=== PATIENT | female | born 1940 | race Caucasian/White ===

== ENCOUNTER → 2018-01-16 11:43 | Outpatient (CLI) | payer MEDICARE, BC, OTHER, SELFPAY ==
--- NOTE | 2018-01-16 | DI.MRI.S_ITS ---
PROCEDURE: MR CERVICAL SPINE WO CON INDICATIONS: Spondylosis without myelopathy or radiculopathy, c TECHNIQUE: Noncontrast sagittal T1 spin echo and T2 fast spin echo, sagittal STIR, foraminal oblique sagittal T2 fast spin echo, and axial gradient echo or T2 fast spin echo through the cervical spine. COMPARISON: [facility], , C-SPINE WITHOUT CONTRAST, 10/18/2010, 7:46. FINDINGS: Image quality: Motion is present on multiple sequences, limiting areas of fine detail evaluation. Alignment and Curvature: There is prominent reversal of normal cervical curvature with apex at C5. There is trace anterolisthesis of C2 on C3, C3 on C4, C7 on T1 trace retrolisthesis of C5 on C6, C6 on C7. Bone Marrow: Marrow demonstrates normal overall signal. Mild reactive endplate changes are present at C4-5, minimal at C5-6 and C6-7. Spinal Cord: Visualized spinal cord has normal size and signal. No cerebellar tonsillar herniation. Paraspinous Soft Tissues: No paravertebral masses. Prevertebral soft tissues are normal in thickness. Discs: Moderate to severe desiccation is present throughout the cervical spine. C2-C3: Minimal disc bulge without spinal stenosis. There is moderate left foraminal narrowing with uncovertebral hypertrophy, progressive compared to prior exam. C3-C4: Mild disc bulge including a superimposed right posterior paracentral protrusion causing significant compromise of the right lateral recess as well as compromise of the proximal right neural foramina. This is new compared to prior exam. Uncovertebral hypertrophy is present. C4-C5: Mild disc bulge with moderate to severe spinal stenosis, slightly progressive. There is moderate to severe left and mild left foraminal narrowing particularly progressive on the left. Uncovertebral hypertrophy is present. C5-C6: Mild disc bulge with moderate spinal stenosis. There is severe left and moderate right foraminal narrowing with uncovertebral hypertrophy, progressive compared to prior exam. C6-C7: Mild disc bulge with moderate spinal stenosis. There is severe right and [id number] left foraminal narrowing with uncovertebral hypertrophy. This is progressive compared to prior exam. C7-T1: No disc bulge, spinal stenosis or foraminal narrowing. IMPRESSION: 1. Multilevel degenerative changes demonstrate interval progression compared to prior exam as noted above. 2. Multilevel spinal stenosis most severe at C4-5 secondary to disc bulge with contributing effect of reversal of cervical curvature as well as uncovertebral arthropathy. 3. Multilevel foraminal narrowing severe at C5-6 and C6-7 predominantly secondary to uncovertebral arthropathy. Dictated by: Romina Ambrocio M.D. on 01/16/2018 at 16:23 Approved by: Romina Ambrocio M.D. on 01/16/2018 at 16:41
== END ==
PROVIDERS: PCP Internal Medicine; Visit Provider Physical Medicine & Rehabilitation Pain Medicine
DX: M47.812 Spondylosis without myelopathy or radiculopathy, cervical region (principal); M50.31 Other cervical disc degeneration, high cervical region; M48.02 Spinal stenosis, cervical region; M50.221 Other cervical disc displacement at C4-C5 level
CPT/HCPCS: 72141

== ENCOUNTER 2018-02-11 08:17 | Day surgery (SDC) | payer MEDICARE, BC, OTHER, SELFPAY ==
--- NOTE | 2018-02-11 08:14 | PM.PREOP ---
Pre-operative Note Interval Note Pre-op Check: Yes History & Physical Reviewed by Physician Changes: No
--- NOTE | 2018-02-11 08:23 | PM.OP.1 ---
Operative Date/Time/Diagnoses Date of procedure: 02/11/18 Time of procedure: 10:00 Procedure & Clinicians Procedure: Date of service: February 11, 2018 Preoperative diagnoses: 1. Right nuclear sclerotic and cortical cataract 2. Previous open heart surgery now in sinus rhythm. Postoperative diagnoses: 1. Cataract removed with phacoemulsification with posterior chamber interocular lens implant placed. Procedure: Phacoemulsification with posterior chamber intraocular lens implant Surgeon: Leila Wren MD Complications:None Specimen: None Implant:ZCBOO+22.5 Blood loss: None Anesthesia: Retrobulbar with monitored standby Anesthesiologist: Yohan Haq M.D. Description of procedure: Patient is a female 77year old with decreased vision due to cataract which is affecting activities of daily living. She wants surgery to improve vision. She was taken to the operating room and given IV sedation. A retrobulbar block insert consisting of 6 cc of 2% xylocaine without epinephrine mixed half and half with 0.5% Marcaine with 1 cc of hyaluronidase added is placed between the medial and lateral 1/3 of the inferior orbital rim. Lid akinesia is obtain with 1% xylocaine with epinephrine infiltrated along the lid margin. The eye is manually massaged for 30 sec, prepped using Betadine solution, and draped in the usual sterile fashion. Temporal approach was made, a 1 mm side-port incision was made at the 7:30 position. Phenylephrine 1.5% mixed with 1% xylocaine 0.2 cc was placed into the anterior chamber. Viscoat followed by Healon was then placed. A 2.6 mm clear incision with a 2.6 mm blade was placed at the 170 degree meridian. A 360 degree capsulorrhexis style capsulotomy was then performed with a cystitome needle on a Healon. Hydrodelineation and hydrodissection were performed. The phacoemulsification unit is introduced, and sculpting notice used to groove the central lens. It is then removed in chopping mode. Epi nucleus is removed with epinuclear mode and irrigation aspiration was used to remove the peripheral cortex. The posterior capsule is polished. The intraocular lens is selected, inspected, power confirmed, and placed in the posterior chamber. The pupil [] constricted. The wound was strongly hydrated and tested for leaks, there was none [] left sutureless. Vigamox 0.1 cc was placed into the anterior chamber. Kenalog 0.2 cc was placed in the superior subconjunctival space. A drop of antibiotic and was placed and the eye was patched and shielded. The patient was stable and returned to the recovery room in excellent condition. Dictated by: Leila Wren MD Copy to: [facility] Same procedure as scheduled: Yes
[2018-02-11] MEDS: CATARACT EYE COMPOUND (10 DROPS/SYRINGE) 3 DROPS EYE-OP (08:57)
[2018-02-11] MEDS: PROPARACAINE 0.5% OPHTH SOL 2 DROPS EYE-OP (08:57)
[2018-02-11 09:04] VITALS: BP 145/64; PULSE 64; RESP 16; TEMP 36.4; O2SAT 98; BMI 23.5
[2018-02-11] MEDS: CHONDROIDTIN/SOD HYALURONATE 1.05 ML SYRINGE INTRAOCULA (10:04)
[2018-02-11] MEDS: BALANCED SALT IRRIG SOLN NO.2 15 ML IRRIG.SOLN IRR (10:04)
[2018-02-11] MEDS: CARBACHOL 1.5 ML VIAL INJ (10:04)
[2018-02-11] MEDS: LIDOCAINE 1% W/EPI INJ 20 ML INJ (10:05)
[2018-02-11] MEDS: HYALURONATE SODIUM 10 MG/ML SYRINGE INJ (10:05)
[2018-02-11] MEDS: MOXIFLOXACIN OPHTH DROPS 3 ML BOTTLE 2 DROPS INJ (10:06)
[2018-02-11] MEDS: PHENYLEPHRINE/LIDOCAINE VIAL (OR) 0.2 ML EYE-OP (10:06)
[2018-02-11] MEDS: OFLOXACIN 0.3% OPHTH 5 ML 2 DROPS EYE-RIGHT (10:06)
[2018-02-11] MEDS: LIDOCAINE 2% 4 ML, BUPIVACAINE 0.5% (PF) 4 ML, HYALURONIDASE 150 UNIT INJ (10:07)
[2018-02-11] MEDS: TRIAMCINOLONE 50 MG/5 ML VIAL INJ (10:07)
[2018-02-11] MEDS: BALANCED SALT IRRIG SOLN NO.2 500 ML, EPINEPHrine 1 MG IRR (10:07)
[2018-02-11] MEDS: ERYTHROMYCIN OPHTH 1 GM OINT 1 APPLIC EYE-RIGHT (10:08)
[2018-02-11 10:40] VITALS: BP 134/68; PULSE 61; RESP 15; TEMP 36.5; O2SAT 100
--- NOTE | 2018-02-11 10:55 | SUR.PHASEII ---
[id number] patient dressed , ready to go, steady on feet, no questions
== END 2018-02-11 10:51 | disposition home or self-care (01) ==
LOC: OR 08:18
PROVIDERS: PCP Internal Medicine; Visit Provider Ophthalmology
DX: H25.11 Age-related nuclear cataract, right eye (principal); J45.909 Unspecified asthma, uncomplicated; I48.91 Unspecified atrial fibrillation
CPT/HCPCS: J0171; J2704; J3301; J3470

== ENCOUNTER 2018-02-25 10:13 | Day surgery (SDC) | payer MEDICARE, BC, OTHER, SELFPAY ==
--- NOTE | 2018-02-24 17:20 | PM.PREOP ---
Pre-operative Note Interval Note Pre-op Check: Yes History & Physical Reviewed by Physician Changes: No
--- NOTE | 2018-02-24 17:21 | P.OP_ITS ---
Operative Date/Time/Diagnoses Date of procedure: 02/25/18 Time of procedure: 12:00 Procedure & Clinicians Procedure: Date of service: February 25, 2018 Preoperative diagnoses: 1. Nuclear sclerotic Cataract 2. Previous open heart surgery Postoperative diagnoses: 1. Cataract removed with phacoemulsification and posterior chamber intra- ocular lens implant placed. Procedure: Phacoemulsification with posterior chamber intraocular lens implant Surgeon: Leila Wren MD Complications: None Specimen: None Implant: ZCBOO+23.0 Blood loss: None Anesthesia: Retrobulbar with monitored standby Anesthesiologist: Shane Neumann M.D. Description of procedure: Patient is a 70 year old with decreased vision due to cataract which is affecting activities of daily living. She wants surgery to improve vision. She was taken to the operating room and given IV sedation. A retrobulbar block consisting of 6 cc of 2% xylocaine without epinephrine mixed half and half with 0.5% Marcaine with 1 cc of hyaluronidase added is placed between the medial and lateral 1/3 of the inferior orbital rim. Lid akinesia is obtain with 1% xylocaine with epinephrine infiltrated along the lid margin. The eye is manually massaged for 30 sec, prepped using Betadine solution, and draped in the usual sterile fashion. Temporal approach was made, a 1 mm side-port incision was made at the 12 oclock meridian. Phenylephrine 1.5% mixed with 1% xylocaine 0.2 cc was placed into the anterior chamber. Viscoat followed by Healon was then placed. A 2.6 mm clear incision with a 2.6 mm blade was placed at the 3 oclock meridian. A 360 degree capsulorrhexis style capsulotomy was then performed with a cystitome needle on a Healon. Hydrodelineation and hydrodissection were performed. The phacoemulsification unit is introduced, and sculpting notice used to groove the central lens. It is then removed in chopping mode. Epi nucleus is removed with epinuclear mode and irrigation aspiration was used to remove the peripheral cortex. The posterior capsule is polished. The intraocular lens is selected, inspected, power confirmed, and placed in the posterior chamber. The pupil was constricted. The wound was stromally hydrated and tested for leaks, there was none and was left sutureless. Vigamox 0.1 cc was placed into the anterior chamber. Kenalog 0.2 cc was placed in the superior subconjunctival space. A drop of antibiotic and was placed and the eye was patched and shielded. The patient was stable and returned to the recovery room in excellent condition. Dictated by: Leila Wren MD Copy to: [facility] Same procedure as scheduled: Yes
[2018-02-25] MEDS: PROPARACAINE 0.5% OPHTH SOL 2 DROPS EYE-OP (10:43)
[2018-02-25] MEDS: CATARACT EYE COMPOUND (10 DROPS/SYRINGE) 3 DROPS EYE-OP (10:53)
[2018-02-25 10:54] VITALS: BMI 23.0
[2018-02-25 11:13] VITALS: BP 156/68; PULSE 57; RESP 16; TEMP 36.4; O2SAT 96
[2018-02-25] MEDS: CARBACHOL 1.5 ML VIAL INJ (13:29)
[2018-02-25] MEDS: CHONDROIDTIN/SOD HYALURONATE 1.05 ML SYRINGE INTRAOCULA (13:29)
[2018-02-25] MEDS: BALANCED SALT IRRIG SOLN NO.2 15 ML IRRIG.SOLN IRR (13:29)
[2018-02-25] MEDS: MOXIFLOXACIN OPHTH DROPS 3 ML BOTTLE 2 DROPS INJ (13:30)
[2018-02-25] MEDS: LIDOCAINE 1% W/EPI INJ 20 ML INJ (13:30)
[2018-02-25] MEDS: HYALURONATE SODIUM 10 MG/ML SYRINGE INJ (13:30)
[2018-02-25] MEDS: ERYTHROMYCIN OPHTH 1 GM OINT 1 APPLIC EYE-LEFT (13:30)
[2018-02-25] MEDS: OFLOXACIN 0.3% OPHTH 5 ML 2 DROPS EYE-LEFT (13:31)
[2018-02-25] MEDS: PHENYLEPHRINE/LIDOCAINE VIAL (OR) 0.2 ML EYE-OP (13:31)
[2018-02-25] MEDS: BALANCED SALT IRRIG SOLN NO.2 500 ML, EPINEPHrine 1 MG IRR (13:32)
[2018-02-25] MEDS: TRIAMCINOLONE 50 MG/5 ML VIAL INJ (13:32)
[2018-02-25] MEDS: LIDOCAINE 2% 4 ML, BUPIVACAINE 0.5% (PF) 4 ML, HYALURONIDASE 150 UNIT INJ (13:33)
[2018-02-25 14:10] VITALS: BP 129/65; PULSE 71; RESP 16; TEMP 36.1; O2SAT 100
== END 2018-02-25 14:15 | disposition home or self-care (01) ==
LOC: OR 10:14
PROVIDERS: PCP Internal Medicine; Visit Provider Ophthalmology
DX: H25.12 Age-related nuclear cataract, left eye (principal); J45.909 Unspecified asthma, uncomplicated; I48.91 Unspecified atrial fibrillation
CPT/HCPCS: J0171; J2250; J2704; J3010; J3301; J3470

== ENCOUNTER → 2018-03-10 11:30 | Outpatient (CLI) | payer MEDICARE, BC, OTHER, SELFPAY ==
[2018-03-10 13:02] LABS: Digoxin 0.7 ng/mL (0.8-2.0)
[2018-03-10 13:29] LABS: BUN Creatinine Ratio 18.8 (6-22); Blood Urea Nitrogen 15 mg/dL (7-17); Calcium 9.5 mg/dL (8.4-10.2); Carbon Dioxide 31 mmol/L (22-32); Chloride 98 mmol/L (98-107); Estimated Glomerular Filt Rate > 60.0 mL/min (>60); Glucose 114 mg/dL (80-110); HEMOLYSIS < 15 (0-50); Potassium 4.9 mmol/L (3.4-5.1); Sodium 140 mmol/L (137-145)
== END ==
PROVIDERS: PCP Internal Medicine; Visit Provider Internal Medicine Cardiovascular Disease
DX: I48.91 Unspecified atrial fibrillation (principal); I48.4 Atypical atrial flutter
CPT/HCPCS: 36415; 80048; 80162

== ENCOUNTER → 2018-07-06 14:16 | Outpatient (CLI) | payer MEDICARE, BC, OTHER, SELFPAY ==
--- NOTE | 2018-07-06 15:15 | PM.TREADMILL ---
Cardiac Stress Test Report Referral & Results Date Patient Seen: 07/06/18 Requesting provider: Saurabh Wren Indication: Chest pain Rest ECG: Unremarkable Procedure Note: Today following both written and verbal informed consent the patient was exercised according to a standard Eliceo protocol patient went for a total of 4 minutes 58 sec achieving a maximum heart rate of 140 (artifact makes this difficult to be confident, but this is approximately the maximum heart rate), maximum systolic blood pressure of 160 to. This is approximately 7.0 METS. Exercise was terminated at this point because of patient unable to continue. Patient was also given Cardiolite through a previously started Hep-Lock IV by the nuclear chemistry technician approximately 1 minute prior to the cessation of exercise. No ST-T segment changes noted through significant artifact. None noted upon immediate cessation of activity and rest which reduced artifact Normal heart rate and blood pressure response to exercise Functional aerobic impairment rated-20% sedentary scale Impression: No ECG evidence of ischemia. Please see perfusion imaging Excellent exercise capacity Please note: Actual ECG tracings can be found in the PACS system.
--- NOTE | 2018-07-07 15:19 | DI.NM.S_ITS ---
DATE OF SERVICE: 07/06/2017 PROCEDURE: Exercise perfusion study. INDICATIONS: Chest pain and shortness of breath. RADIOPHARMACEUTICAL: 26.7 mCi technetium-99m Myoview IV was injected at stress and 26.5 mCi technetium-99m Myoview IV was injected at rest. CARDIAC STRESS: Patient underwent exercise perfusion study under the supervision of an attending staff. She walked on Eliceo protocol for 4 minutes 58 seconds and achieved 100% of target heart rate, and normal blood pressure response. Baseline EKG revealed sinus rhythm. There was artifact seen. At peak exercise, there was artifact seen as well. However, no convincing ischemic changes. In recovery, there were no convincing ischemic changes or significant arrhythmias. Patient was unable to walk further. RAW DATA: There was significant breast shadow seen. GATED STUDY: Stress LV ejection fraction 80%. No obvious wall motion abnormalities. Resting end-diastolic volume is 87 mL. No transient ischemic dilatation. TID ratio is 0.8, which is within normal limits. Lung/heart ratio is 0.32, which is within normal limits. MYOCARDIAL PERFUSION SCAN: Stress supine and resting supine images revealed small-sized mildly decreased perfusion of distal anterior wall, apex, which got significantly improved in prone images. Prone images remained to have minimally decreased perfusion of the distal anterior wall and anterior apex. No reversible ischemia. CONCLUSION: I will call this study likely a normal myocardial perfusion study with evidence of breast tissue attenuation artifact which got partially improved during prone images. [place] has normal wall motion which goes against the diagnosis of previous myocardial infarction. No regional wall motion abnormalities. Significant breast shadow was seen during raw images. Patient had pharmacological perfusion study in 08/2009, that time also patient had similar perfusion defect. Overall, this is a low-risk myocardial perfusion scan. Kavon Larson - PRINCE/gabriel/ab doc#: [id number]/job#: [id number] dd: 07/07/2018 14:51:00 dt: 07/07/2018 14:57:00 DICTATING MD/COPIES TO: Vera Ugarte MD COPIES MNE: RUI
== END ==
PROVIDERS: Family Provider Internal Medicine Cardiovascular Disease; PCP Internal Medicine; Visit Provider Internal Medicine
DX: R07.9 Chest pain, unspecified (principal); R06.02 Shortness of breath
CPT/HCPCS: 78452; 93016; 93017; 93018; A9502

== ENCOUNTER → 2018-09-09 09:48 | Outpatient (CLI) | payer MEDICARE, BC, OTHER, SELFPAY ==
[2018-09-09 10:53] LABS: Add Manual Diff / Slide Review NO; Basophils Absolute Auto 100 /uL (0-100); Basophils Percent Auto 1.1 % (0-2); Eosinophils Absolute Auto 200 /uL (0-450); Eosinophils Percent Auto 3.4 % (2-4); Hematocrit 37.5 % (36-46); Hemoglobin 12.7 g/dL (12.0-16.0); Lymphocytes Absolute Auto 2100 /uL (1100-4500); Lymphocytes Percent Auto 34.2 % (25-40); Mean Corpuscular HGB Conc 33.9 % (30-36); Mean Corpuscular Hemoglobin 32.9 PG (26-34); Monocytes Absolute Auto 500 /uL (0-900); Monocytes Percent Auto 7.6 % (3-14); Neutrophils Absolute Auto 3300 /uL (1500-7000); Neutrophils Percent Auto 53.7 % (50-75); Platelet Count 253 X10^3/uL (150-400); Red Blood Cell Count 3.87 X10^6/uL (4.0-5.2); Red Cell Distribution Width 12.6 % (11.6-14.8); White Blood Cell Count 6.1 X10^3/uL (4.5-11.0)
[2018-09-09 11:10] LABS: Alanine Aminotransferase 17 IU/L (9-52); Albumin Globulin Ratio 1.2 (1.0-2.8); Alkaline Phosphatase 79 U/L (38-126); Aspartate Aminotransferase 19 IU/L (14-36); BUN Creatinine Ratio 17.5 (6-22); Bilirubin Total 0.3 mg/dL (0.2-1.3); Blood Urea Nitrogen 14 mg/dL (7-17); Calcium 9.3 mg/dL (8.4-10.2); Carbon Dioxide 30 mmol/L (22-32); Chloride 98 mmol/L (98-107); Estimated Glomerular Filt Rate > 60.0 mL/min (>60); Globulin 3.3 g/dL (1.7-4.1); Glucose 101 mg/dL (80-110); HEMOLYSIS < 15 (0-50); Potassium 4.3 mmol/L (3.4-5.1); Sodium 137 mmol/L (137-145); Total Protein 7.3 g/dL (6.3-8.2)
[2018-09-09 11:39] LABS: Thyroid Stimulating Hormone 2.83 uIU/mL (0.47-4.68)
[2018-09-09 13:28] LABS: Free T4, Direct Thyroxine 1.35 ng/dL (0.78-2.19)
[2018-09-11 15:56] LABS: Triiodothyronine T3 Total 111 ng/dL (76-181)
== END ==
PROVIDERS: Family Provider Internal Medicine; PCP Internal Medicine; Visit Provider Internal Medicine Cardiovascular Disease
DX: I48.91 Unspecified atrial fibrillation (principal); E03.9 Hypothyroidism, unspecified
CPT/HCPCS: 36415; 80053; 84439; 84443; 84480; 85025

== ENCOUNTER → 2018-09-23 12:55 | Outpatient (CLI) | payer MEDICARE, BC, OTHER, SELFPAY ==
--- NOTE | 2018-09-23 | DI.MG.S_ITS ---
BILATERAL DIGITAL DIAGNOSTIC MAMMOGRAM 3D/2D: 09/23/2018 CLINICAL: Left breast palpable mass. Comparison is made to exam dated: 06/28/2016 [facility]. The tissue of both breasts is heterogeneously dense. This may lower the sensitivity of mammography. There are grouped puncate calcifications of the lower outer right breast at middle depth. These measure up to 0.5 cm in greatest extent. There is a triangular marker overlying the skin of the lower left breast at the site of the patient's reported palpable abnormality. There is no underlying mammographic abnormality. There is a circular mole marker overlying the left breast. IMPRESSION: INCOMPLETE: NEEDS ADDITIONAL IMAGING EVALUATION 1) No mammographic abnormality to correlate with the site of the patient's reported focal palpable abnormality of the lower left breast. Targeted diagnostic ultrasound recommended for further evaluation, which will be performed immediately following this exam. 2) 0.5 cm extent of grouped punctate calcifications of the lower outer right breast at middle depth. A follow-up diagnostic mammogram in 6 months is recommended to demonstrate stability. This exam was interpreted at Station ID: [id number]. NOTE: For mammograms, a report in lay terms will be sent to the patient. Approximately 15% of breast malignancies will not be visualized mammographically. In the management of a palpable breast mass, a negative mammogram must not discourage biopsy of a clinically suspicious lesion. Electronically Signed By: Daniel Vick M.D. ecl/:09/23/2018 14:45:42 copy to: oTm Goldberg ACR BI-RADS Category 0: Incomplete 3340F
--- NOTE | 2018-09-23 | DI.US.S_ITS ---
LIMITED ULTRASOUND OF LEFT BREAST: 09/23/2018 CLINICAL: Palpable left breast lump. Comparison is made to exams dated: 09/23/2018 mammogram, 06/28/2016 mammogram, 04/30/2007 mammogram, and 08/18/2002 mammogram - [facility]. Real-time and Doppler ultrasound of the left breast 4 o'clock region were performed. Nicholson scale images of the real-time examination were reviewed. There is a 1.8 x 1.1 x 1.9 cm heterogeneously hypoechoic irregular indistinct mass in the left breast at 4:00 position 5 cm from the nipple at the site of patient's reported palpable concern. This mass demonstrates internal vascularity on Doppler ultrasound and posterior acoustic shadowing. Targeted ultrasound of the left axilla demonstrates no left axillary lymphadenopathy. IMPRESSION: SUSPICIOUS OF MALIGNANCY 1. 1.9 cm irregular indistinct mass in the left breast at 4:00 position 5 cm from the nipple at the site of patient's reported palpable concern. An ultrasound-guided biopsy is recommended for further evaluation. Recommendation for biopsy was discussed with the patient at the time of the exam by the [facility] Radiologist Dr. Rishi Miles in person. 2. No ultrasound evidence of left axillary lymphadenopathy. 3. Diagnostic mammography performed immediately prior to this exam identified a 0.5 cm extent of grouped punctate calcifications of the lower outer right breast at middle depth. A follow-up diagnostic mammogram in 6 months is recommended to demonstrate stability. This exam was interpreted at Station ID: [id number]. Electronically Signed By: Daniel Vick M.D. ecl/:09/23/2018 16:00:48 copy to: Tom Goldberg letter sent: Biopsy Required Ultrasound BI-RADS: 4b Suspicious abnormality - intermediate suspicion of malignancy
--- NOTE | 2018-09-23 | DI.US.S_ITS ---
PROCEDURE: US ABDOMEN COMPLETE INDICATIONS: ABDOMINAL PAIN TECHNIQUE: Real-time scanning was performed of the abdominal and retroperitoneal organs, with image documentation. COMPARISON: [facility], US, ABDOMEN COMPLETE, 02/11/2008, 9:36. FINDINGS: Liver: Liver is normal in size and homogeneous in echotexture. Gallbladder: There is a 1.2 cm mobile gallstone within the gallbladder lumen and tenderness during sonographic palpation over the gallbladder but the gallbladder wall is not abnormally thickened at 1.7 mm. Biliary ducts: Intrahepatic bile ducts are non-dilated. Extrahepatic bile duct caliber measures 4.8 mm. Normal is 6-7 mm or less in diameter, or 10 mm or less post-cholecystectomy. Pancreas: Visualized portions of the pancreas are sonographically normal. Spleen: Spleen is normal in size and homogeneous in echotexture. Kidneys: Kidneys are normal in size and echotexture. Right kidney measures 10.3 cm long; left kidney measures 11.0 cm long. No hydronephrosis or nephrolithiasis. No solid masses. Aorta: Visualized aorta is normal in caliber at less than 3 cm. Iliacs: Proximal common iliac arteries are normal in caliber at less than 2.5 cm. IVC: Intrahepatic inferior vena cava is patent. Miscellaneous: No free abdominal fluid. IMPRESSION: A normal or abnormal appendix could not be identified at the right lower quadrant. There is a 1.2 cm mobile gallstone within the gallbladder lumen with associated tenderness during sonographic palpation over the gallbladder but the gallbladder wall is not thickened and there is no adjacent pericholecystic free fluid. The likelihood of acute cholecystitis in this clinical circumstance is low. Dictated by: Rishi Miles M.D. on 09/23/2018 at 14:13 Approved by: Rishi Miles M.D. on 09/23/2018 at 14:14
== END ==
PROVIDERS: Family Provider Internal Medicine; PCP Internal Medicine; Referring Provider Internal Medicine Cardiovascular Disease; Visit Provider Internal Medicine
DX: R92.8 Other abnormal and inconclusive findings on diagnostic imaging of breast (principal); R92.1 Mammographic calcification found on diagnostic imaging of breast; N63.23 Unspecified lump in the left breast, lower outer quadrant; R10.11 Right upper quadrant pain; R10.31 Right lower quadrant pain; K80.80 Other cholelithiasis without obstruction
CPT/HCPCS: 76642; 76700; 77066; G0279

== ENCOUNTER → 2018-09-29 12:11 | Outpatient (CLI) | payer MEDICARE, BC, OTHER, SELFPAY ==
[2018-09-29 13:27] LABS: Alanine Aminotransferase 20 IU/L (9-52); Albumin 4.1 g/dL (3.5-5.0); Albumin Globulin Ratio 1.4 (1.0-2.8); Alkaline Phosphatase 70 U/L (38-126); Aspartate Aminotransferase 19 IU/L (14-36); BUN Creatinine Ratio 21.4 (6-22); Bilirubin Total 0.6 mg/dL (0.2-1.3); Blood Urea Nitrogen 15 mg/dL (7-17); Calcium 9.7 mg/dL (8.4-10.2); Carbon Dioxide 32 mmol/L (22-32); Chloride 98 mmol/L (98-107); Estimated Glomerular Filt Rate > 60.0 mL/min (>60); Glucose 103 mg/dL (80-110); HEMOLYSIS < 15 (0-50); Potassium 4.7 mmol/L (3.4-5.1); Sodium 138 mmol/L (137-145); Total Protein 7.1 g/dL (6.3-8.2)
== END ==
PROVIDERS: PCP Internal Medicine; Visit Provider Internal Medicine
DX: R10.31 Right lower quadrant pain (principal)
CPT/HCPCS: 36415; 80053

== ENCOUNTER → 2018-10-01 10:02 | Outpatient (CLI) | payer MEDICARE, BC, OTHER, SELFPAY ==
--- NOTE | 2018-10-01 11:11 | DI.CT.S_ITS ---
PROCEDURE: CT ABDOMEN PELVIS WO CON INDICATIONS: Right lower quadrant pain TECHNIQUE: After the administration of oral contrast, 5 mm thick sections acquired from the diaphragms to the symphysis. 5 mm coronal and sagittal reformats were performed. For radiation dose reduction, the following was used: automated exposure control, adjustment of mA and/or kV according to patient size. COMPARISON: None. FINDINGS: Image quality: Excellent. ABDOMEN: Lung bases: Lung bases are clear. Heart size is normal. Solid organs: Liver is normal in size. Cholelithiasis is seen, and no gallbladder wall thickening or pericholecystic fluid. Pancreas is normal in size. Spleen is normal in size. No adrenal nodules. Both kidneys are normal in size, without hydronephrosis or nephrolithiasis. Nonspecific bilateral perinephric fat stranding is seen. No perinephric fluid collection. Peritoneum and bowel: There is a small hiatal hernia. No evidence of bowel obstruction. No abnormal bowel wall thickening or mesenteric fat stranding. The appendix is visualized and is within normal limits. No free fluid or free air. Nodes and vessels: No retroperitoneal or mesenteric adenopathy by size criteria. Aorta and inferior vena cava are normal in size. Miscellaneous: No ventral hernias. PELVIS: Genitourinary: Bladder wall thickness is normal. Miscellaneous: No inguinal hernias or adenopathy. Bones: No suspicious bony lesions. No vertebral body compression fractures. Mild dextroscoliosis of lumbar spine is seen centered at L3-4 level. Degenerative disc disease throughout thoracic and lumbar spine is seen. IMPRESSION: 1. Normal appendix. No bowel obstruction. No free fluid or free air. 2. No renal stone hydronephrosis. Nonspecific bilateral perinephric fat stranding, infectious process such as pyelonephritis cannot be excluded. No gross bladder wall abnormality. 3. Cholelithiasis, no CT evidence of acute cholecystitis. Dictated by: Simon Porter M.D. on 10/01/2018 at 17:52 Approved by: Simon Porter M.D. on 10/01/2018 at 17:55
== END ==
PROVIDERS: PCP Internal Medicine; Visit Provider Internal Medicine
DX: R10.31 Right lower quadrant pain (principal); K80.20 Calculus of gallbladder without cholecystitis without obstruction
CPT/HCPCS: 74176

== ENCOUNTER → 2018-10-02 13:31 | Outpatient (CLI) | payer MEDICARE, BC, OTHER, SELFPAY ==
--- NOTE | 2018-10-02 | PATH_ITS ---
[facility] Accession Number: [id number] . 01 Material submitted: . breast - LEFT BREAST 4:00 . 01 Clinical history: . A: LEFT BREAST 4:00 5CM FN . 02 Diagnosis: Mass at 4 o'clock, 5 cm from Nipple, Left Breast, Needle Core Biopsy: Invasive mammary carcinoma with the following characteristics: Tumor size: 0.6 cm in greatest length. Tumor type: Infiltrating carcinoma; E-cadherin studies pending for further characterization. Histologic grade: Grade 2 of 3 (intermediate grade). Tubular score: 3 of 3. Nuclear score: 3 of 3. Mitotic score: 1 of 3. In situ carcinoma: Present; E-cadherin studies pending for further characterization. Lymphatic/vascular invasion: Not identified. Estrogen/Progesteron Receptor and HER2 studies: Pending; results will be reported as an addendum. MRV/10/05/2018 . 02 Comment: Results were discussed with Dr. Wren on 10/05/18 at approximately 1:50 p.m. . 02 Electronically signed: . Wilma Colorado MD, Pathologist NPI- [id number] . 01 Gross description: . Received one formalin-filled container labeled with the patient's name and labeled left breast 4 o'clock, 5 cm FN. The specimen is received with plastic filter in container. Sample loose in container. The specimen consists of multiple pieces of light yellow partial cylindrically shaped tissue, which range in length from 0.2 to 0.6 cm in greatest dimension. The specimen is filtered, wrapped and entirely submitted in one cassette. Collection date 10/02/2018. Collection time per container 1450. Total fixation time 24 up to 48 hours. ([facility] [place]:[id number]) /[facility] . 02 Pathologist provided ICD-10: C50.912 . 02 CPT . 915524, [id number], 512661, 253410, 881431 Performed at: 01 [facility] [address] [id number] MD Alexander Fink MD Phone: [phone] Performed at: 02 [id number] [place], [place] [id number] MD Echo Hilario MD Phone: [phone]
--- NOTE | 2018-10-02 | DI.US.S_ITS ---
ULTRASOUND GUIDED BIOPSY LEFT BREAST USING VACUUM DEVICE WITH MARKING DEVICE INSERTED: 10/02/2018 CLINICAL: Left breast mass. PATIENT CONSENT: Risks (minor bleeding, infection, vasovagal reaction and repeat procedure), benefits and alternatives were explained to the patient and written informed consent was obtained. Correlation is made to exams dated: 10/02/2018 mammogram, 09/23/2018 ultrasound, 09/23/2018 mammogram, 06/28/2016 mammogram, 04/30/2007 mammogram, and 08/18/2002 mammogram - [facility]. An ultrasound guided biopsy using real-time ultrasound was performed for the indistinct irregular shaped mass located in the left breast at 4 o'clock posterior depth. The skin was prepped in the usual manner. Local anesthetic was administered to the access site. A small incision was made in the breast. The abnormality was approached from the lateral aspect. A biopsy needle was placed adjacent to the abnormality under ultrasound guidance. Once the needle was documented to be in the correct location, six specimens were obtained using the Mammotome biopsy system. A clip was inserted into the biopsy cavity. The specimens were sent to the laboratory for pathological analysis. IMPRESSION: ULTRASOUND GUIDED BIOPSY MALIGNANT Ultrasound guided biopsy of the mass in the left breast at 4 o'clock posterior depth was successful. 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 Findings are concordant with ultrasound. This exam was interpreted at Station ID: [id number]. Alfredo britton,randall/:10/13/2018 15:33:17 copy to: Tom Goldberg
--- NOTE | 2018-10-02 | DI.MG.S_ITS ---
UNILATERAL LEFT DIGITAL DIAGNOSTIC MAMMOGRAM POST-NEEDLE BIOPSY: 10/02/2018 CLINICAL: Left breast mass. Comparison is made to exams dated: 09/23/2018 mammogram, 06/28/2016 mammogram, and 04/30/2007 mammogram - [facility]. The tissue of left breast is heterogeneously dense. This may lower the sensitivity of mammography. There is a marker clip in the appropriate position in the left breast at 4-5 o'clock middle depth. This marker clip placement is at the biopsy site. IMPRESSION: POST PROCEDURE MAMMOGRAM FOR MARKER PLACEMENT There was a successful marker clip placement in the left breast middle depth. This exam was interpreted at Station ID: [id number]. NOTE: For mammograms, a report in lay terms will be sent to the patient. Approximately 15% of breast malignancies will not be visualized mammographically. In the management of a palpable breast mass, a negative mammogram must not discourage biopsy of a clinically suspicious lesion. Electronically Signed By: Alfredo britton/:10/02/2018 15:52:33 copy to: Tom Goldberg ACR BI-RADS Category Post-procedure mammogram for marker placement
== END ==
PROVIDERS: PCP Internal Medicine; Visit Provider Internal Medicine
DX: C50.512 Malignant neoplasm of lower-outer quadrant of left female breast (principal); Z17.0 Estrogen receptor positive status [ER+]
CPT/HCPCS: 19083; 77065; 88305; 88342; 88360

== ENCOUNTER 2018-11-19 11:18 | Day surgery (SDC) | payer MEDICARE, BC, OTHER, SELFPAY ==
[2018-11-13 08:32] VITALS: BMI 24.4
[2018-11-19] VITALS (9 sets, daily range): BP systolic 112–139; BP diastolic 33–63; PULSE 64–79; RESP 9–18; TEMP 36.4–36.7; O2SAT 94–99; BMI 24.4
--- NOTE | 2018-11-19 | PATH_ITS ---
[facility] Accession Number: [id number] . 01 Material submitted: . gallbladder - GALLBLADDER . 01 Clinical history: . 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 02 Diagnosis: Gallbladder, Laparoscopic Cholecystectomy: Gallbladder with cholesterolosis and cholelithiasis. One benign cystic duct lymph node (0). MRV/11/23/2018 . 02 Electronically signed: . Wilma Colorado MD, Pathologist NPI- [id number] . 01 Gross description: . Received in formalin, labeled gallbladder, is an intact gallbladder (length-7.4 cm, diameter-2.3 cm) with green smooth shiny serosa and a patent cystic duct. One lymph node (0.4 x 0.4 x 0.2 cm) is identified. The lumen contains green viscous bile and one yellow gritty friable calculus (0.9 x 0.8 x 0.5 cm). The mucosa is green and rough. The wall is up to 0.1 cm thick. No nodules, masses or lesions are identified. Section code: (A1) cystic duct resection margin and two serial sections from the body; (A2) two longitudinal sections from the fundus; (A3) one intact lymph node. ([id number]) /MRV . 02 Pathologist provided ICD-10: K80.70 . 02 CPT . 666238 Performed at: [address] [facility] [address], [place], [place] [id number] MD Alexander Fink MD Phone: [phone] Performed at: 02 [facility] [address] [place], [place] [id number] MD Echo Hilario MD Phone: [phone]
--- NOTE | 2018-11-19 13:12 | PM.PREOP ---
Pre-operative Note Interval Note History & Physical reviewed/Exam performed by Physician: Yes Changes to H&P: No H&P completed within 30 days and has changed as indicated here:: See note from 11/11/2018
[2018-11-19] MEDS: levoFLOXacin 500 MG/100 ML PIGGYBACK 100 MG IV (13:30)
--- NOTE | 2018-11-19 13:50 | SUR.OPER ---
Supine on padded OR bed, head on pillow, safety belt at thigh, left arm padded and tucked at side. Right arm secured on padded arm oard <90 degrees abduction. Legs uncrossed. Padded footboard in place. Tape over blanket to secure lower legs.
[2018-11-19] MEDS: BUPIVACAINE 0.5% (PF) VIAL 30 ML INJ (13:56)
[2018-11-19] MEDS: LACTATED RINGERS 1,000 ML 42 ML IV (14:42)
[2018-11-19] MEDS: LORazepam 2 MG/ML INJ 0.25 MG IV (15:05)
[2018-11-19] MEDS: HYDROMORPHONE 2 MG INJ 0.5 MG IV ×2 (15:06→15:25)
[2018-11-19] MEDS: METOCLOPRAMIDE 10 MG/2 ML INJ IV (15:16)
--- NOTE | 2018-11-19 15:17 | P.OP_ITS ---
Operative Date/Time/Diagnoses Date of procedure: 11/19/18 Time of procedure: 15:00 Pre-op diagnosis: Cholelithiasis cholecystitis chronic Post-op diagnosis: same Procedure & Clinicians Procedure: Laparoscopic cholecystectomy Same procedure as scheduled: Yes Indications: Abdominal pain with gallstones. Surgeon: Rahul Chan Click Yes if Unassisted: Yes Anesthesia Type: General Operative Notes Findings: Mildly thickened gallbladder wall. Stones within the gallbladder. Closure Type: primary Specimen(s): none sent Prosthetic devices, grafts, tissues, transplants, or devices: None odd Estimated Blood Loss (mL): 5 Blood products transfused: none Procedure in detail: The patient was placed supine on the operating room table and underwent general endotracheal anesthesia. The patient was prepped and draped in the usual fashion. Local anesthetic was infiltrated near the umbilicus and curvilinear incision made and carried down through fascia into the peritoneal cavity. Stay sutures of 0 Vicryl were placed in the fascia. A 12 mm port was placed. The abdomen was insufflated. The patient was repositioned. Local anesthetic was infiltrated in 3 areas under the right costal margin and 3D incisions made followed by placing 3 5 mm ports under direct laparoscopic camera vision internally. The gallbladder was grasped and elevated. Dissection was begun near its end. A ductal structure surrounded by small vascular structures was from surrounding tissue. It was singular nature and appeared to go directly the gallbladder. Three clips were placed across it was divided leaving 2 in the patient. A nearby vascular structure was handled in similar fashion with 4 clips leaving 3 in the patient. There was 1 other small vascular appearing structure that had 3 clips placed across it was divided leaving 2 in the patient.. The gallbladder was then dissected from its bed in the liver using cautery. Meticulous hemostasis was achieved as I progressed. It was detached. I examined the abdominal wall then in the area of the umbilicus is the patient had been having pain in that region preoperatively. There was no significant finding. There was no adhesions in the area. I could see no abnormalities or masses. The gallbladder was then removed through the umbilical port. the port sites were all irrigated. The stay sutures at the umbilicus were elevated. A 2 0 PDS suture was placed between them. The Vicryl and PDS sutures were then tied. The skin in all areas was closed with interrupted 4 0 Vicryl subcuticular stitches. Steri-Strips and Mastisol were applied. Band- Aids were placed and the patient was awakened, extubated and taken to the recovery area in good condition. Complications: none Condition: stable Disposition: PACU
[2018-11-19] MEDS: OXYCODONE/ACETAMINOPHEN 5/325 TABLET 1 TAB PO (16:15)
== END 2018-11-19 16:50 | disposition home or self-care (01) ==
PROVIDERS: PCP Internal Medicine; Visit Provider Specialist
PROC: 0FT44ZZ Resection of Gallbladder, Percutaneous Endoscopic Approach (ICD-10-PCS; CPT 47562; principal; 2018-11-19 12:45)
DX: K80.10 Calculus of gallbladder with chronic cholecystitis without obstruction (principal)
CPT/HCPCS: 47562; 88304; J1100; J1170; J1885; J1956; J2060; J2405; J2704; J2765; J3010

== ENCOUNTER → 2019-01-01 14:40 | Outpatient (CLI) | payer MEDICARE, BC, OTHER, SELFPAY ==
[2019-01-01 16:18] LABS: Prealbumin 22.1 mg/dL (17.6-36.0)
[2019-01-01 16:28] LABS: Free T4, Direct Thyroxine 1.54 ng/dL (0.78-2.19)
[2019-01-01 16:44] LABS: Thyroid Stimulating Hormone 0.35 uIU/mL (0.47-4.68)
[2019-01-05 16:59] LABS: Triiodothyronine T3 Total 102 ng/dL (76-181)
== END ==
PROVIDERS: PCP Internal Medicine; Visit Provider Internal Medicine
DX: R63.4 Abnormal weight loss (principal)
CPT/HCPCS: 36415; 84134; 84439; 84443; 84480

== ENCOUNTER → 2019-06-22 14:10 | Outpatient (CLI) | payer MEDICARE, BC, OTHER, SELFPAY ==
--- NOTE | 2019-06-22 | DI.RAD.S_ITS ---
PROCEDURE: XR CHEST 2V INDICATIONS: COUGH TECHNIQUE: 2 views of the chest were acquired. COMPARISON: [facility], CHEST 2 VIEW, 10/20/2016, 8:23. [facility], CHEST 2 VIEW, 05/31/2013, 13:49. FINDINGS: Surgical changes and devices: Sternotomy wires, presumed prior CABG. Lungs and pleura: Lungs are clear. No pleural effusions or pneumothorax. Mediastinum: Mediastinal contours are normal. Heart size is normal. Bones and chest wall: No suspicious bony abnormalities. Soft tissues appear unremarkable. IMPRESSION: No acute disease, prior CABG, source of cough is not found. Dictated by: Rishi Miles M.D. on 06/22/2019 at 14:47 Approved by: Rishi Miles M.D. on 06/22/2019 at 14:48
== END ==
PROVIDERS: PCP Internal Medicine; Referring Provider Internal Medicine; Visit Provider Internal Medicine
DX: R05 Cough (principal); Z95.1 Presence of aortocoronary bypass graft
CPT/HCPCS: 71046

== ENCOUNTER → 2019-10-28 12:41 | Outpatient (CLI) | payer MEDICARE, BC, OTHER, SELFPAY ==
[2019-10-28 13:49] LABS: Add Manual Diff / Slide Review NO; Basophils Absolute Auto 100 /uL (0-100); Eosinophils Absolute Auto 200 /uL (0-450); Hematocrit 36.3 % (36-46); Hemoglobin 12.7 g/dL (12.0-16.0); Lymphocytes Absolute Auto 2300 /uL (1100-4500); Lymphocytes Percent Auto 36.6 % (25-40); Mean Corpuscular HGB Conc 35.1 % (30-36); Mean Corpuscular Hemoglobin 34.2 PG (26-34); Mean Corpuscular Volume 97.4 fL (80-100); Monocytes Absolute Auto 400 /uL (0-900); Monocytes Percent Auto 5.8 % (3-14); Neutrophils Absolute Auto 3400 /uL (1500-7000); Neutrophils Percent Auto 53.6 % (50-75); Platelet Count 240 X10^3/uL (150-400); Red Blood Cell Count 3.72 X10^6/uL (4.0-5.2); Red Cell Distribution Width 12.4 % (11.6-14.8); White Blood Cell Count 6.3 X10^3/uL (4.5-11.0)
[2019-10-28 16:12] LABS: Alanine Aminotransferase 18 IU/L (<35); Albumin 3.8 g/dL (3.5-5.0); Albumin Globulin Ratio 1.4 (1.0-2.8); Alkaline Phosphatase 54 U/L (38-126); Aspartate Aminotransferase 25 IU/L (14-36); BUN Creatinine Ratio 22.6 (6-22); Bilirubin Total 0.3 mg/dL (0.2-1.3); Blood Urea Nitrogen 19 mg/dL (7-17); Calcium 9.4 mg/dL (8.4-10.2); Carbon Dioxide 28 mmol/L (22-32); Chloride 101 mmol/L (98-107); Estimated Glomerular Filt Rate > 60.0 mL/min (>60); Globulin 2.7 g/dL (1.7-4.1); Glucose 176 mg/dL (80-110); HEMOLYSIS < 15 (0-50); Sodium 139 mmol/L (137-145); Total Protein 6.5 g/dL (6.3-8.2)
[2019-10-28 16:13] LABS: Free T4, Direct Thyroxine 1.53 ng/dL (0.78-2.19)
[2019-10-28 16:27] LABS: Thyroid Stimulating Hormone 0.158 uIU/mL (0.47-4.68)
[2019-10-29 06:36] LABS: Triiodothyronine T3 Total 111 ng/dL (71-180)
== END ==
PROVIDERS: PCP Internal Medicine; Referring Provider Internal Medicine; Visit Provider Internal Medicine
DX: M85.80 Other specified disorders of bone density and structure, unspecified site (principal); E03.9 Hypothyroidism, unspecified; Z85.3 Personal history of malignant neoplasm of breast
CPT/HCPCS: 36415; 80053; 84439; 84443; 84480; 85025

== ENCOUNTER → 2019-11-19 08:59 | Outpatient (CLI) | payer MEDICARE, BC, OTHER, SELFPAY ==
[2019-11-19 09:59] LABS: Hemoglobin A1C% w Est Avg Glu 5.6 % (4.0-6.0)
== END ==
PROVIDERS: PCP Internal Medicine; Referring Provider Internal Medicine; Visit Provider Internal Medicine
DX: R73.9 Hyperglycemia, unspecified (principal)
CPT/HCPCS: 36415; 83036

== ENCOUNTER → 2020-01-28 13:01 | Outpatient (CLI) | payer MEDICARE, BC, OTHER, SELFPAY ==
[2020-01-28 14:03] LABS: Add Manual Diff / Slide Review NO; Basophils Absolute Auto 100 /uL (0-100); Basophils Percent Auto 1.1 % (0-2); Eosinophils Absolute Auto 200 /uL (0-450); Eosinophils Percent Auto 2.4 % (2-4); Hematocrit 36.7 % (36-46); Hemoglobin 12.5 g/dL (12.0-16.0); Lymphocytes Absolute Auto 3200 /uL (1100-4500); Mean Corpuscular HGB Conc 34.1 % (30-36); Mean Corpuscular Hemoglobin 32.6 PG (26-34); Mean Corpuscular Volume 95.7 fL (80-100); Monocytes Absolute Auto 800 /uL (0-900); Monocytes Percent Auto 8.2 % (3-14); Neutrophils Absolute Auto 5400 /uL (1500-7000); Neutrophils Percent Auto 55.3 % (50-75); Platelet Count 265 X10^3/uL (150-400); Red Blood Cell Count 3.84 X10^6/uL (4.0-5.2); Red Cell Distribution Width 12.4 % (11.6-14.8); White Blood Cell Count 9.8 X10^3/uL (4.5-11.0)
[2020-01-28 14:06] LABS: Alanine Aminotransferase 18 IU/L (<35); Albumin 3.9 g/dL (3.5-5.0); Albumin Globulin Ratio 1.3 (1.0-2.8); Alkaline Phosphatase 73 U/L (38-126); Aspartate Aminotransferase 22 IU/L (14-36); BUN Creatinine Ratio 22.8 (6-22); Bilirubin Total 0.3 mg/dL (0.2-1.3); Blood Urea Nitrogen 18 mg/dL (7-17); Calcium 8.5 mg/dL (8.4-10.2); Carbon Dioxide 32 mmol/L (22-32); Chloride 102 mmol/L (98-107); Estimated Glomerular Filt Rate > 60.0 mL/min (>60); Globulin 3.1 g/dL (1.7-4.1); Glucose 92 mg/dL (80-110); HEMOLYSIS < 15 (0-50); Potassium 4.2 mmol/L (3.4-5.1); Sodium 138 mmol/L (137-145)
== END ==
PROVIDERS: PCP Physician Assistant; Referring Provider Physician Assistant; Visit Provider Physician Assistant
DX: R30.0 Dysuria (principal)
CPT/HCPCS: 36415; 80053; 85025; 87086

== ENCOUNTER 2020-02-10 09:54 | Emergency (ER) | payer MEDICARE, BC, OTHER, SELFPAY ==
[2020-02-10 10:01] VITALS: BP 148/67; PULSE 87; RESP 16; TEMP 36.8; O2SAT 99; BMI 23.1
--- NOTE | 2020-02-10 10:12 | ED_ITS ---
HPI - URI/Sore Throat General Chief Complaint: Upper Respiratory Symptoms Stated Complaint: sore throat/swollen glands x4 days Time Seen by Provider: 02/10/20 10:01 Source: patient Mode of arrival: Ambulatory Limitations: no limitations History of Present Illness HPI Narrative: Patient is a 79-year-old female with history of coronary artery disease and paroxysmal atrial fibrillation presenting with sore throat. She says it started yesterday. She denies any fever body aches or cough or shortness of breath. She feels like she has cervical lymphadenopathy and complains of tender lymph nodes. 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 MD Complaint: sore throat Onset (ago): day(s) Severity: mild Associated symptoms: denies other symptoms Related Data Home Medications Medication Instructions Recorded Confirmed clonazepam 0.5 mg PO HS PRN #0 02/02/12 01/28/20 sertraline [Zoloft] 50 mg PO QDAY #0 02/02/12 01/28/20 Premarin 1.25 mg PO QDAY #0 02/17/12 01/28/20 diphenhydramine HCl [Benadryl 25 mg PO PRN PRN #0 02/29/12 01/28/20 Allergy] epinephrine 0.3 mg IM PRN PRN #0 12/05/16 01/28/20 naratriptan 2.5 - 5 mg PO Q12HP PRN #0 12/05/16 01/28/20 verapamil 120 mg PO QDAY #0 12/05/16 01/28/20 albuterol sulfate [Ventolin HFA] 0 puff INH Q4HP PRN 02/25/18 01/28/20 digoxin [Digox] 0.125 mg PO DAILY 02/25/18 01/28/20 furosemide 20 mg PO DAILY 02/25/18 01/28/20 cetirizine 10 mg capsule 10 mg PO DAILY cap 11/11/18 01/28/20 docusate sodium 100 mg capsule 100 mg PO DAILY 11/11/18 01/28/20 fluticasone propionate 50 1 spray NASAL DAILY 11/11/18 01/28/20 mcg/actuation nasal spray,suspension ipratropium bromide 17 1 puff INHALATION Q6H 11/11/18 01/28/20 mcg/actuation HFA aerosol inhaler lansoprazole 15 mg capsule,delayed 15 mg PO DAILY 11/11/18 01/28/20 release multivitamin 1 cap PO DAILY 11/11/18 01/28/20 aspirin [Aspir-81] 81 mg PO DAILY 11/19/18 01/28/20 Previous Rx's Medication Instructions Recorded levothyroxine [Synthroid] 150 mcg PO QAM #90 tab 09/23/17 hydrocodone-acetaminophen [[place]] See Rx Instructions .ROUTE 11/19/18 .COMPLEX PRN #14 tab Allergies Allergy/AdvReac Type Severity Reaction Status Date / Time Gadolinium-Containing Allergy Severe Anaphylaxis Verified 01/28/20 12:24 Contrast Medi Penicillins Allergy Severe Hives Verified 01/28/20 12:24 venom-honey bee Allergy Severe swelling Verified 01/28/20 12:24 [bee venom (honey bee)] atorvastatin Allergy Unknown Verified 01/28/20 12:24 dronedarone [From Multaq] Allergy Unknown Verified 01/28/20 12:24 iodine Allergy Unknown Hives Verified 01/28/20 12:24 metoprolol Allergy Unknown worsened Verified 01/28/20 12:24 asthma sodium iodide Allergy Unknown Verified 01/28/20 12:24 Sulfa (Sulfonamide Allergy Unknown Hives Verified 01/28/20 12:24 Antibiotics) Review of Systems Review of Systems Narrative: GENERAL: Denies chills, fatigue, malaise, fever, sweats, travel HEENT: See HPI RESPIRATORY: Denies dyspnea, cough, wheezing, hemoptysis, sputum. CARDIOVASCULAR: Denies chest pain, palpitations, orthopnea, edema GASTROINTESTINAL: Denies nausea, vomiting, abdominal pain, diarrhea, constipation, melena. : Denies dysuria, frequency, incontinence, hematuria, urinary retention, flank pain. MUSCULOSKELETAL: Denies weakness, joint pain, or bony pain SKIN: No rash, no erythema, no pruritus NEUROLOGIC: Denies weakness, dizziness, headache, numbness, change in speech, confusion PSYCHIATRIC: No concerning psychosocial issues. 12 point review of systems is negative except for those stated above and HPI Patient History Medical History Afib (Acute) Asthma (Acute) Breast cancer (Acute) CAD (coronary artery disease) (Acute) Gastroesophageal reflux disease (Chronic) History of atrial fibrillation (Chronic) History of COPD (Chronic) HLD (hyperlipidemia) (Acute) HTN (hypertension) (Acute) Hypothyroid (Acute) Surgical History H/O cardiac radiofrequency ablation (Acute) History of ankle surgery (Resolved) History of bladder surgery (Resolved) History of open heart surgery (Resolved) Hx of bilateral cataract extraction (Acute ~01/2018) Hx of maze procedure (Acute) S/P CABG x 3 (Acute 02/25/13) Status post hysterectomy (Resolved) Family History Father Heart disease Grandfather Stroke Grandmother Heart disease Mother Heart disease Stroke Social History household members: spouse Smoking Status: Current some day smoker Smoking Status: Current some day smoker alcohol intake frequency: 0-2 drinks per day Substance Use Type: does not use Exam Initial Vital Signs Initial Vital Signs: Vital Signs Temperature 98.2 F 02/10/20 10:01 Pulse Rate 87 02/10/20 10:01 Respiratory Rate 16 02/10/20 10:01 Blood Pressure 148/67 H 02/10/20 10:01 Pulse Oximetry 99 02/10/20 10:01 GENERAL: Well-appearing female and in no acute distress. HEENT: Head atraumatic,EOMI, pupils reactive, face symmetric, moist mucous membranes, minimal cervical anterior lymphadenopathy appreciated slightly tender to touch more on right than left EARS: Tympanic membranes visualized, no erythema or bulging, no hemotympanum PHARYNX: Minimal erythema no exudate CARDIOVASCULAR: Regular rate and rhythm without murmurs, rubs or gallops. RESPIRATORY: Breath sounds equal bilaterally, no wheezes rales or rhonchi. EXTREMITIES: Normal range of motion, no clubbing or edema. Neurovascularly intact NEUROLOGICAL: Alert and oriented x4.Normal gait and speech. SKIN: Warm, dry, no laceration, no petechiae, no rashes or lesions. Course Orders Ordered: ED Orders 02/10/20 10:15 COVID19 -ED/INPAT/OR/L&D Stat Vital Signs Vital signs: Vital Signs - 8 hr 02/10/20 10:01 02/10/20 11:24 Temperature 98.2 F Pulse Rate 87 80 Respiratory Rate 16 16 Blood Pressure 148/67 H 130/60 Pulse Oximetry 99 100 MDM - URI/Sore Throat Lab Data Labs: Lab Results 02/10/20 Range/Units 10:15 COVID-19 PCR Negative (Negative) Point of Care Testing Rapid Strep A Negative MDM Narrative Medical decision making narrative: At this time no indication for antibiotics. She has no fever or respiratory symptoms. Strep is negative [place] it is negative. I have explained to her that if her symptoms get worse may require antibiotics but she needs to be re-evaluated. Discharge Plan Departure Patient Disposition: Home Clinical Impression: Acute upper respiratory infection Discharge Date/Time: 02/10/20 11:25 Instructions: DI for Viral Upper Respiratory Infection -- Adult Activity Restrictions/Additional Instructions: *You have been diagnosed with upper respiratory infection *What to do: At this time strep is negative and COVID-19 also negative. It is likely that you have a no other respiratory virus. Antibiotics are not indicated at this time. Recommend supportive care rest increase fluids. *Continue to take medications as directed *Follow up with your primary care provider in 2-3 days *Return to ER if you should have cough, fever, body aches, shortness of breath, difficulty breathing or swallowing or any new, worsening or concerning symptoms Prescriptions: No Action sertraline [Zoloft] 50 MG tablet 50 mg PO QDAY Qty: 0 RF: 0 clonazepam 0.5 MG tablet 0.5 mg PO HS PRN (Reason: Insomnia) Qty: 0 RF: 0 Premarin 1.25 MG tablet 1.25 mg PO QDAY Qty: 0 RF: 0 diphenhydramine HCl [Benadryl Allergy] 25 MG tablet 25 mg PO PRN PRN (Reason: hives) Qty: 0 RF: 0 epinephrine 0.3 MG/0.3 ML auto-injector 0.3 mg IM PRN PRN (Reason: Allergic Reaction) Qty: 0 RF: 0 naratriptan 2.5 MG tablet 2.5 - 5 mg PO Q12HP PRN (Reason: Migraine Headache) Qty: 0 RF: 0 verapamil 240 MG tablet extended release 120 mg PO QDAY Qty: 0 RF: 0 levothyroxine [Synthroid] 150 mcg tablet 150 mcg PO QAM Qty: 90 RF: 0 lansoprazole 15 mg capsule,delayed release(DR/EC) 15 mg PO DAILY RF: 0 docusate sodium 100 mg capsule 100 mg PO DAILY RF: 0 multivitamin capsule 1 cap PO DAILY RF: 0 fluticasone propionate [Allergy Relief (fluticasone)] 50 mcg/actuation spray,suspension 1 spray NASAL DAILY RF: 0 ipratropium bromide 17 mcg/actuation HFA aerosol inhaler 1 puff INHALATION Q6H RF: 0 cetirizine 10 mg capsule 10 mg PO DAILY RF: 0 digoxin [Digox] 125 mcg Tablet 0.125 mg PO DAILY RF: 0 furosemide 20 mg Tablet 20 mg PO DAILY RF: 0 albuterol sulfate [Ventolin HFA] 90 MCG/PUFF HFA aerosol inhaler 0 puff INH Q4HP PRN (Reason: Dyspnea) RF: 0 aspirin [Aspir-81] 81 mg Tablet,Delayed Release (Dr/Ec) 81 mg PO DAILY RF: 0 hydrocodone-acetaminophen [[place]] 5-325 mg tablet See Rx Instructions .ROUTE .COMPLEX PRN (Reason: painful procedure) Qty: 14 RF: 0 Referrals: Rukhsana Lombardi PA-C [Primary Care Provider] -
[2020-02-10 10:48] LABS: COVID19 -Nasal RAPID Negative (Negative)
[2020-02-10 11:24] VITALS: BP 130/60; PULSE 80; RESP 16; O2SAT 100
== END 2020-02-10 11:25 | disposition home or self-care (01) ==
PROVIDERS: Emergency Provider Emergency Medicine; PCP Physician Assistant
DX: J06.9 Acute upper respiratory infection, unspecified (principal)
CPT/HCPCS: 87635; 87880; 99282

== ENCOUNTER → 2020-02-25 09:27 | Outpatient (CLI) | payer MEDICARE, BC, OTHER, SELFPAY ==
[2020-02-25 10:15] LABS: Add Manual Diff / Slide Review NO; Basophils Absolute Auto 100 /uL (0-100); Basophils Percent Auto 2.5 % (0-2); Eosinophils Absolute Auto 200 /uL (0-450); Eosinophils Percent Auto 3.8 % (2-4); Hematocrit 35.2 % (36-46); Lymphocytes Absolute Auto 1900 /uL (1100-4500); Lymphocytes Percent Auto 36.9 % (25-40); Mean Corpuscular Hemoglobin 32.8 PG (26-34); Mean Corpuscular Volume 96.5 fL (80-100); Monocytes Absolute Auto 500 /uL (0-900); Monocytes Percent Auto 8.8 % (3-14); Neutrophils Absolute Auto 2500 /uL (1500-7000); Platelet Count 289 X10^3/uL (150-400); Red Blood Cell Count 3.65 X10^6/uL (4.0-5.2); Red Cell Distribution Width 12.5 % (11.6-14.8); White Blood Cell Count 5.2 X10^3/uL (4.5-11.0)
[2020-02-25 10:47] LABS: Alanine Aminotransferase 19 IU/L (<35); Albumin 3.8 g/dL (3.5-5.0); Albumin Globulin Ratio 1.3 (1.0-2.8); Alkaline Phosphatase 85 U/L (38-126); Aspartate Aminotransferase 22 IU/L (14-36); BUN Creatinine Ratio 24.3 (6-22); Bilirubin Total 0.3 mg/dL (0.2-1.3); Blood Urea Nitrogen 17 mg/dL (7-17); Calcium 8.8 mg/dL (8.4-10.2); Carbon Dioxide 30 mmol/L (22-32); Chloride 100 mmol/L (98-107); Cholesterol 183 mg/dL (140-199); Estimated Glomerular Filt Rate > 60.0 mL/min (>60); Globulin 2.9 g/dL (1.7-4.1); Glucose 129 mg/dL (80-110); HDL Cholesterol 34 mg/dL (40-60); HEMOLYSIS < 15 (0-50); LDL Cholesterol Calculated 96 mg/dL (<100); Potassium 4.2 mmol/L (3.4-5.1); Sodium 137 mmol/L (137-145); Total Protein 6.7 g/dL (6.3-8.2); Triglycerides 266 mg/dL (35-150)
[2020-02-25 11:03] LABS: Vitamin D 25 Hydroxy (D3) 43.8 ng/mL (30.0-100.0)
[2020-02-25 11:16] LABS: TSH w/ Reflex to FT4 1.32 uIU/mL (0.47-4.68)
== END ==
PROVIDERS: PCP Physician Assistant; Referring Provider Physician Assistant; Visit Provider Physician Assistant
DX: E78.00 Pure hypercholesterolemia, unspecified (principal); I10 Essential (primary) hypertension; E03.9 Hypothyroidism, unspecified; E55.9 Vitamin D deficiency, unspecified
CPT/HCPCS: 36415; 80053; 80061; 82306; 84443; 85025

== ENCOUNTER → 2020-06-02 10:59 | Outpatient (CLI) | payer MEDICARE, BC, OTHER, SELFPAY ==
[2020-06-02 11:25] LABS: Add Manual Diff / Slide Review NO; Basophils Absolute Auto 100 /uL (0-100); Basophils Percent Auto 1.5 % (0-2); Eosinophils Absolute Auto 200 /uL (0-450); Eosinophils Percent Auto 2.7 % (2-4); Hematocrit 35.8 % (36-46); Hemoglobin 12.3 g/dL (12.0-16.0); Lymphocytes Absolute Auto 2800 /uL (1100-4500); Lymphocytes Percent Auto 36.5 % (25-40); Mean Corpuscular HGB Conc 34.3 % (30-36); Mean Corpuscular Hemoglobin 32.6 PG (26-34); Mean Corpuscular Volume 94.9 fL (80-100); Monocytes Absolute Auto 600 /uL (0-900); Monocytes Percent Auto 7.3 % (3-14); Neutrophils Absolute Auto 4000 /uL (1500-7000); Platelet Count 252 X10^3/uL (150-400); Red Blood Cell Count 3.77 X10^6/uL (4.0-5.2); Red Cell Distribution Width 12.7 % (11.6-14.8); White Blood Cell Count 7.8 X10^3/uL (4.5-11.0)
[2020-06-02 11:41] LABS: Alanine Aminotransferase 17 IU/L (<35); Albumin 4.1 g/dL (3.5-5.0); Albumin Globulin Ratio 1.3 (1.0-2.8); Alkaline Phosphatase 72 U/L (38-126); Aspartate Aminotransferase 23 IU/L (14-36); BUN Creatinine Ratio 26.4 (6-22); Bilirubin Total 0.3 mg/dL (0.2-1.3); Blood Urea Nitrogen 19 mg/dL (7-17); Calcium 8.9 mg/dL (8.4-10.2); Carbon Dioxide 34 mmol/L (22-32); Chloride 100 mmol/L (98-107); Estimated Glomerular Filt Rate > 60.0 mL/min (>60); Globulin 3.2 g/dL (1.7-4.1); Glucose 115 mg/dL (80-110); HEMOLYSIS < 15 (0-50); Potassium 4.4 mmol/L (3.4-5.1); Sodium 138 mmol/L (137-145); Total Protein 7.3 g/dL (6.3-8.2)
[2020-06-02 12:18] LABS: Free T3, Triiodothyronine Free 3.66 pg/mL (2.77-5.27)
[2020-06-02 12:31] LABS: Thyroid Stimulating Hormone 0.451 uIU/mL (0.47-4.68)
== END ==
PROVIDERS: PCP Physician Assistant; Referring Provider Internal Medicine Cardiovascular Disease; Visit Provider Internal Medicine Cardiovascular Disease
DX: I48.91 Unspecified atrial fibrillation (principal); E03.8 Other specified hypothyroidism
CPT/HCPCS: 36415; 80053; 84436; 84443; 84481; 85025